=== PATIENT | male | born 1965 | race Caucasian/White ===

== ENCOUNTER 2021-02-20 12:37 | Emergency (ER) | payer SELFPAY ==
[2021-02-20 12:51] VITALS: BMI 27.2
[2021-02-20] MEDS ORDERED: levETIRAcetam 500 MG/5 ML INJECTION VIAL IVPB ONE ×3 (13:22→13:37)
[2021-02-20] MEDS ORDERED: ONDANSETRON 4 MG/2 ML VIAL IVPUSH ONE (13:41)
[2021-02-20] MEDS ORDERED: ONDANSETRON 4 MG/2 ML VIAL ONE (13:43)
[2021-02-20] MEDS ORDERED: DEXTROSE 5% IVPB ONE (13:45)
[2021-02-20] MEDS ORDERED: WATER IVPB ONE (13:45)
[2021-02-20] MEDS ORDERED: LEVETIRACETAM IVPB ONE (13:45)
[2021-02-20 14:15] VITALS: BP 115/79; PULSE 83
[2021-02-20 14:25] VITALS: TEMP 98.2
[2021-02-20 14:28] LABS: BASO % 0.7 % (0-2.0); EOS % 1.4 % (0-4.5); HEMATOCRIT 45.5 % (35.4-49); HEMOGLOBIN 15.2 GM/dL (11.7-16.9); LYMPH % 29.1 % (8-40); MCH 28.1 pg (25.7-33.7); MCHC 33.5 g/dl (32.0-35.9); MEAN CELL VOLUME 83.8 fl (80-96); MEAN PLT VOLUME 8.6 fl (7.5-11.1); MONO % 6.9 % (3.8-10.2); NEUT % 61.9 % (42.8-82.8); PLATELET COUNT 160 10^3/uL (134-434); RBC 5.43 M/mm3 (4.00-5.60); RDW 16.1 % (11.9-15.9); WHITE BLOOD COUNT 7.6 K/mm3 (4.0-10.0)
[2021-02-20 14:33] LABS: CHLORIDE 106 mmol/L (98-107); SODIUM 138 mmol/L (136-145)
[2021-02-20 14:35] LABS: BLOOD UREA NITROGEN 16.1 mg/dL (7-18)
[2021-02-20 14:36] LABS: ALBUMIN 3.6 g/dl (3.4-5.0); ANION GAP 7 MMOL/L (8-16); CO2 25 mmol/L (21-32); GLUCOSE,RANDOM 104 mg/dL (74-106)
[2021-02-20 14:39] LABS: CREATININE 1.1 mg/dL (0.55-1.3); PHOSPHOROUS 2.1 mg/dL (2.5-4.9); SGOT/AST 34 U/L (15-37); SGPT/ALT 49 U/L (13-61)
[2021-02-20 14:40] LABS: ALK PHOS 45 U/L (45-117); BILIRUBIN,TOTAL 0.4 mg/dL (0.2-1); TOT PROT 7.1 g/dl (6.4-8.2)
[2021-02-20 14:41] LABS: INR 0.93 (0.83-1.09); PROTHROMBIN TIME (PATIENT) 11.5 SEC (9.7-13.0)
[2021-02-20 14:44] LABS: ACTIVATED PTT 24.9 SECONDS (25.2-36.5)
== END 2021-02-20 14:27 | disposition short-term general hospital (02) ==
LOC: JER 12:37
PROC: 3E033GC Introduction of Other Therapeutic Substance into Peripheral Vein, Percutaneous Approach (ICD-10-PCS; principal; 2021-02-20)
PROC: 3E033GC Introduction of Other Therapeutic Substance into Peripheral Vein, Percutaneous Approach (ICD-10-PCS; 2021-02-20)
DX: G40.89 Other seizures (principal); Q28.2 Arteriovenous malformation of cerebral vessels
CPT/HCPCS: 36415; 70450-TC; 70496-TC; 70498-TC; 80053; 82550; 82553; 83735; 84100; 84484; 85025; 85610; 85730; 86850; 86900; 86901; 99285-25; Q9967